=== PATIENT | male | born 1940 | race Hispanic/Latino ===

== ENCOUNTER → 2017-03-15 | Outpatient (CLI) | payer OTHER ==
[~2017-03-15] MED LIST: FINA5TAB41 PO; GLIP-162 PO; METF10004 PO; PROP10TA10 PO
== END | disposition home or self-care (01) ==
LOC: OIH 08:58
PROVIDERS: ATTEND Internal Medicine
DX: R06.02 Shortness of breath (principal)
CPT/HCPCS: 71046

== ENCOUNTER → 2017-05-01 | Outpatient (CLI) | payer OTHER | END | disposition home or self-care (01) | LOC: RAH 12:05 | PROVIDERS: ATTEND Internal Medicine | DX: R05 Cough (principal); R06.02 Shortness of breath | CPT/HCPCS: 71046 ==

== ENCOUNTER → 2017-05-17 | Outpatient (CLI) | payer OTHER ==
[~2017-05-17] MED LIST changes: +ALBUTEROL SULFATE 0.083% 2.5 MG/3 ML INH IH ONE
== END | disposition home or self-care (01) ==
LOC: RAH 09:58
PROVIDERS: ATTEND Internal Medicine
DX: R06.02 Shortness of breath (principal)
CPT/HCPCS: 93306

== ENCOUNTER → 2017-08-15 | Outpatient (CLI) | payer OTHER ==
[~2017-08-15] MED LIST changes: -ALBUTEROL SULFATE 0.083% 2.5 MG/3 ML INH IH ONE
== END | disposition home or self-care (01) ==
LOC: RAH 07:12
PROVIDERS: ATTEND Internal Medicine Gastroenterology
DX: K74.60 Unspecified cirrhosis of liver (principal); R18.8 Other ascites
CPT/HCPCS: 76700

== ENCOUNTER 2018-07-27 09:27 | Day surgery (SDC) | payer OTHER, MEDICARE ==
[~2018-07-27] VITALS: Ht 167.6 cm; Wt 66.2 kg
[~2018-07-27 09:27] MED LIST changes: +FURO40TA5 PO; +INSULIN SQ; +LACT10SO8 PO; +LISI10TA7 PO; +METF-444 PO; -METF10004 PO; +SODIUM CHLORIDE 0.9% 1000ML 1,000 ML IV ONE; +SPIR100T5 PO
[2018-07-27 11:40] VITALS: BP 129/69
[2018-07-27] MEDS ORDERED: PROPOFOL 10 MG/ML 20ML VIAL IV ONE ×2 (11:51)
[2018-07-27] MEDS ORDERED: PHENYLEPHRINE HCL 10 MG/ML 1ML VIAL IV ONE (11:59)
[2018-07-27 12:00] VITALS: BP 144/59
[2018-07-27 12:05] VITALS: BP 117/53
[2018-07-27 12:10] VITALS: BP 120/48
[2018-07-27 12:15] VITALS: BP 128/54
[2018-07-27 12:25] VITALS: BP 129/52
== END 2018-07-27 13:01 | disposition home or self-care (01) ==
LOC: DAH 09:27
PROVIDERS: ATTEND Internal Medicine
DX: I85.10 Secondary esophageal varices without bleeding (principal); K74.60 Unspecified cirrhosis of liver; C22.9 Malignant neoplasm of liver, not specified as primary or secondary; E11.9 Type 2 diabetes mellitus without complications; I10 Essential (primary) hypertension; I44.0 Atrioventricular block, first degree; Z86.010 Personal history of colon polyps; Z79.84 Long term (current) use of oral hypoglycemic drugs; Z79.899 Other long term (current) drug therapy; Z98.890 Other specified postprocedural states
CPT/HCPCS: 43235; 82948; 93005; A4606; J2370; J2704 ×2; J7030

== ENCOUNTER → 2019-07-12 | Outpatient (CLI) | payer OTHER, MEDICARE ==
[~2019-07-12] MED LIST changes: -FINA5TAB41 PO; -INSULIN SQ; +LACT10SO62 PO; -LACT10SO8 PO; -SODIUM CHLORIDE 0.9% 1000ML 1,000 ML IV ONE
== END | disposition home or self-care (01) ==
LOC: RAH 08:51
PROVIDERS: ATTEND Internal Medicine
DX: N28.1 Cyst of kidney, acquired (principal)
CPT/HCPCS: 76705